=== PATIENT | female | born 2000 | race Caucasian/White ===

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

== ENCOUNTER 2019-05-05 11:59 | Emergency (ER) | payer OTHER ==
[2019-05-05] MEDS: IBUPROFEN 800 MG TAB PO (13:11)
[2019-05-05] MEDS: ACETAMINOPHEN 325 MG TAB PO (13:11)
[2019-05-05] MEDS: LIDOCAINE 1% (MDV) 20 ML INJ SC (13:12)
[2019-05-05] MEDS: DEXAMETHASONE 10 MG/ML 1 ML INJ IM (13:12)
[2019-05-05 13:19] LABS: URINE BLOOD (Dip) POC 3+ (NEGATIVE); URINE GLUCOSE (Dip) POC Negative (NEGATIVE); URINE KETONES (Dip) POC Negative (NEGATIVE); URINE LEUKOCYTE EST (Dip) POC Negative (NEGATIVE); URINE NITRITE (Dip) POC Negative (NEGATIVE); URINE TOTAL PROTEIN POC 1+ (NEGATIVE)
[2019-05-05 13:19] LABS: URINE PH (Dip) POC 7.5 (5.0-8.5)
[2019-05-05] MEDS: CEFTRIAXONE 1 GM INJ IM (13:20)
[2019-05-05 13:54] LABS: ADD UMIC YES; UR ASCORBIC ACID NEGATIVE (NEGATIVE); UR BILIRUBIN (Dip) NEGATIVE (NEGATIVE); UR BLOOD (Dip) 3+ mg/dL (NEGATIVE); UR CLARITY SLIGHTLY CLOUDY (CLEAR); UR COLOR YELLOW (YELLOW); UR GLUCOSE (Dip) NEGATIVE (NEGATIVE); UR KETONES (Dip) NEGATIVE (NEGATIVE); UR LEUKOCYTE ESTERASE (Dip) NEGATIVE Leu/ul (NEGATIVE); UR NITRITE (Dip) NEGATIVE (NEGATIVE); UR RBC > 182 /HPF (0-5); UR SPECIFIC GRAVITY (Dip) 1.015 (1.003-1.030); UR SQUAMOUS EPITHELIAL CELL FEW /HPF (FEW); UR TOTAL PROTEIN (Dip) NEGATIVE (NEGATIVE); UR UROBILINOGEN (Dip) NEGATIVE (NEGATIVE); UR WBC 19 /HPF (0-5)
== END 2019-05-05 15:02 | disposition home or self-care (01) ==
LOC: FTE 11:59
DX: J03.90 Acute tonsillitis, unspecified (principal); H66.003 Acute suppurative otitis media without spontaneous rupture of ear drum, bilateral
CPT/HCPCS: 71045; 81001; 81003; 81025; 96372; 99284-25